=== PATIENT | female | born 1975 | race Caucasian/White ===

== ENCOUNTER → 2016-08-15 | Outpatient (CLI) | payer OTHER ==
[~2016-08-15] MED LIST: ALLEGRA180 MG PO; BYSTOLIC2.5 MG PO; CALCIUM 600 +1 EAC9 PO; EXPECTA PRENAT1 EACH PO; HYDROCODON-ACE1 EAC4 PO; JUICE PLUS PO; MACROBID100 MG PO; MOTRIN800 MG PO; OMEGA 3 FISH O1 EACH PO; OMEPRAZOLE40 MG PO; PERCOCET 5-3251 EACH PO; PRENATAL 1+1)(P1 TAB; WELLBUTRIN XL300 M2 PO
--- NOTE | 2016-08-15 10:00 | NUR ---
[facility]. Introduced self and role of nurse navigator. Navigation brochure given. Permission received from patient for follow up call Thursday.
--- NOTE | 2016-08-18 13:01 | NUR ---
Called patient post breast biopsy. Patient states they weren't able to do biopsy due to not being able to get tissue. She is scheduled to see Dr. Banegas on Thursday. Told her to call if she had any questions or concerns.
== END | disposition disaster alternative care site (69) ==
LOC: GPOC 08-13 14:00 → GBCOE 09:18 → GPOC 10:00 → GBCOE 10:00
DX: R92.1 Mammographic calcification found on diagnostic imaging of breast (principal); Z53.8 Procedure and treatment not carried out for other reasons